=== PATIENT | female | born 1950 | race Hispanic/Latino ===

== ENCOUNTER 2023-09-19 10:06 | Emergency (ER) | payer MEDICARE ==
[~2023-09-19] VITALS: Ht 152.4 cm; Wt 99.8 kg
[2023-09-19 10:20] VITALS: TEMP 98.3
[2023-09-19 14:13] LABS: CLARITY,URINE CLEAR (CLEAR); COLOR,URINE YELLOW (YELLOW); LEUKOCYTE ESTERASE ,URINE SMALL (NEGATIVE); NITRITE,URINE NEGATIVE (NEGATIVE); PH,URINE 6 (5 - 7)
[2023-09-19 14:14] LABS: BILIRUBIN,URINE NEGATIVE (NEGATIVE); GLUCOSE, URINE 500 (NEGATIVE); KETONES,URINE NEGATIVE (NEGATIVE); PROTEIN,URINE DIPSTICK NEGATIVE (NEGATIVE); URINE UROBILINOGEN 0.2 mg/dL (0.2 - 1)
[2023-09-19 14:24] LABS: BACTERIA,URINE MANY /HPF; EPITHELIAL CELLS,URINE FEW /LPF; RBC,URINE 0-5 /HPF (0-5)
[2023-09-19] MEDS ORDERED: CEFDINIR300 MG PO (15:07)
[2023-09-19 15:56] VITALS: PULSE 66; RESP 16
[2023-09-19 15:57] VITALS: BP 122/78; PULSE 78; RESP 16; O2SAT 96
== END 2023-09-19 15:50 | disposition home or self-care (01) ==
LOC: ER 10:14
DX: M25.551 Pain in right hip (principal); R10.31 Right lower quadrant pain; W18.49XA Other slipping, tripping and stumbling without falling, initial encounter; Y92.89 Other specified places as the place of occurrence of the external cause; N39.0 Urinary tract infection, site not specified; I10 Essential (primary) hypertension; E11.9 Type 2 diabetes mellitus without complications; E78.5 Hyperlipidemia, unspecified; M19.09 Primary osteoarthritis, other specified site
CPT/HCPCS: 81001; 99283

== ENCOUNTER → 2024-09-10 | Day surgery (SDC) | payer MEDICARE ==
[2024-09-04 10:21] LABS: EOSINOPHILS % 6.2 % (0.0-6.0); LYMPHOCYTES % 29.1 % (18.0-39.1); MONOCYTES % 4.5 % (4.4-11.3); NEUTROPHILS % 58.8 % (38.7-80.0); RED CELL DISTRIBUTION WIDTH 14.6 % (11.7-14.4)
[2024-09-04 10:22] LABS: BASOPHILS % 0.8 % (0.0-1.0)
[2024-09-04 10:54] LABS: EST GLOMERULAR FILTRATION RATE 70.0 ML/MIN (>=60)
[~2024-09-10] MED LIST: ASPIRIN81 MG PO; CARVEDILOL3.125 MG PO; CEFDINIR300 MG PO; CYCLOPENTOLATE HCL 2% OPTH SOLN 2 ML BTL OP ONE; DEXAMETHASONE SOD PHOS INJ 4 MG/ML SDV ONE; GATIFLOXACIN(OPTH) 5 ML LIQD ONE; GLIPIZIDE5 MG PO; GLYCOPYRROLATE INJ 0.2 MG/ML VIAL ONE; LACTATED RINGER'S 1,000 ML ONE; LIDOCAINE HCL 2% LOCAL INJ 5 ML SDV VIAL INJ ONE; LOSARTAN POTASS25 MG PO; ONDANSETRON HCL INJ 2MG/ML 2ML 2 MG/ML VIAL ONE; PHENYLEPHRINE HCL 2 ML DROPS ONE; PROLIA60 MG/1 ML; PROPOFOL IV EMULSION 50 ML IV ONE; ROSUVASTATIN CA20 MG PO; TRAMADOL HCL E100 MG PO
[2024-09-10 10:14] VITALS: TEMP 97.4
[2024-09-10 10:45] VITALS: BP 149/78; PULSE 76; RESP 16; O2SAT 95
== END | disposition home or self-care (01) ==
LOC: OR 06:58
PROVIDERS: ATTEND Ophthalmology
DX: H25.12 Age-related nuclear cataract, left eye (principal); D64.9 Anemia, unspecified; E11.9 Type 2 diabetes mellitus without complications; E66.9 Obesity, unspecified; I11.0 Hypertensive heart disease with heart failure; I50.9 Heart failure, unspecified; R05.3 Chronic cough; N20.0 Calculus of kidney; M06.9 Rheumatoid arthritis, unspecified; M19.90 Unspecified osteoarthritis, unspecified site; Z01.812 Encounter for preprocedural laboratory examination; Z79.82 Long term (current) use of aspirin; Z79.84 Long term (current) use of oral hypoglycemic drugs; Z79.899 Other long term (current) drug therapy
CPT/HCPCS: 36415 ×2; 66984; 80048; 82948; 85025; J1100; J2003; J2405; J2704; J7121; V2632

== ENCOUNTER → 2024-11-19 | Day surgery (SDC) | payer MEDICARE ==
[2024-11-11 10:33] LABS: BASOPHILS % 0.9 % (0.0-1.0); EOSINOPHILS % 4.9 % (0.0-6.0); LYMPHOCYTES % 30.2 % (18.0-39.1); MONOCYTES % 4.3 % (4.4-11.3); NEUTROPHILS % 59.1 % (38.7-80.0); RED CELL DISTRIBUTION WIDTH 14.3 % (11.7-14.4)
[2024-11-11 11:05] LABS: EST GLOMERULAR FILTRATION RATE 72.0 ML/MIN (>=60)
[~2024-11-19] MED LIST changes: -CYCLOPENTOLATE HCL 2% OPTH SOLN 2 ML BTL OP ONE; -GATIFLOXACIN(OPTH) 5 ML LIQD ONE; -LACTATED RINGER'S 1,000 ML ONE; +METFORMIN HCL500 MG PO; -PHENYLEPHRINE HCL 2 ML DROPS ONE; +PROPOFOL IV EMULSION 10 MG/ML 20 ML VIAL ONE; -PROPOFOL IV EMULSION 50 ML IV ONE
[2024-11-19] MEDS: LACTATED RINGER'S 1,000 ML ONE (09:31)
[2024-11-19] MEDS: CYCLOPENTOLATE HCL 1% OPTH SOLN 2ML BTL ONE (09:31)
[2024-11-19] MEDS: PHENYLEPHRINE HCL 2 ML DROPS ONE (09:32)
[2024-11-19] MEDS: GATIFLOXACIN(OPTH) 5 ML LIQD ONE (09:32)
[2024-11-19 10:50] VITALS: BP 150/75; PULSE 66; RESP 18; O2SAT 94
== END | disposition home or self-care (01) ==
LOC: OR 06:35
PROVIDERS: ATTEND Ophthalmology
DX: H25.11 Age-related nuclear cataract, right eye (principal); E11.9 Type 2 diabetes mellitus without complications; I11.0 Hypertensive heart disease with heart failure; I50.9 Heart failure, unspecified; E78.5 Hyperlipidemia, unspecified; R05.3 Chronic cough; E66.01 Morbid (severe) obesity due to excess calories; N39.0 Urinary tract infection, site not specified; M06.9 Rheumatoid arthritis, unspecified; Z01.810 Encounter for preprocedural cardiovascular examination; Z01.812 Encounter for preprocedural laboratory examination; Z79.82 Long term (current) use of aspirin; Z79.84 Long term (current) use of oral hypoglycemic drugs; Z79.899 Other long term (current) drug therapy; Z98.61 Coronary angioplasty status
CPT/HCPCS: 36415 ×2; 66984; 80048; 82948; 85025; 93005; J1100; J2003; J2405; J2704; J7121